=== PATIENT | male | born 1965 | race Caucasian/White ===

== ENCOUNTER 2020-07-14 23:12 | Emergency (ER) | payer OTHER ==
[2020-07-15 00:46] LABS: BASOPHIL 0.9 % (0-2); EOSINOPHIL 0.8 % (0-5); HCT 41.9 % (42.0-52.0); LYMPHOCYTE 30.3 % (15-48); MCHC 35.8 g/dL (32.0-36.0); MONOCYTE 6.5 % (0-12); MPV 9.5 fL (6.0-9.5); NEUTROPHIL 61.2 % (41-80); NRBC 0; PLT 279 K/uL (150-400); RBC 4.41 M/uL (4.70-6.00); RDW 13.3 % (11.5-14.0); WBC 7.4 K/uL (4.0-10.5)
[2020-07-15 00:48] LABS: BILIRUBIN NEGATIVE (NEGATIVE); BLOOD 3+ Ery/uL (NEGATIVE); CLARITY CLEAR (CLEAR); COLOR YELLOW (YELLOW); GLUCOSE (U) NORMAL (NORMAL); LEUKOCYTES NEGATIVE Leu/uL (NEGATIVE); NITRITE NEGATIVE (NEGATIVE); PROTEIN 2+ mg/dL (NEGATIVE); SPECIFIC GRAVITY 1.025 (1.001-1.030); pH 6.5 (5.0-9.0)
[2020-07-15 00:50] LABS: AMPHETAMINES NEGATIVE (NEGATIVE); BARBITURATES NEGATIVE (NEGATIVE); ECSTASY (MDMA) NEGATIVE (NEGATIVE); MARIJUANA (THC) NEGATIVE (NEGATIVE); METHADONE NEGATIVE (NEGATIVE); OPIATES NEGATIVE (NEGATIVE); OXYCODONE NEGATIVE (NEGATIVE)
[2020-07-15 00:53] LABS: BACTERIA TRACE
[2020-07-15 01:02] LABS: ALBUMIN 3.1 g/dL (3.4-5.0); ALKALINE PHOSHATASE 101 U/L (46-116); ALT 19 U/L (16-63); AST 20 U/L (15-37); BILIRUBIN - TOTAL 0.3 mg/dL (0.2-1.0); BUN 20 mg/dL (7-18); BUN/CREAT RATIO (CALC) 24.7 RATIO; CHLORIDE 103 mmol/L (98-107); CO2 (BICARBONATE) 29 mmol/L (21-32); CPK 99 U/L (39-308); CREATININE 0.81 mg/dL (0.67-1.17); GLUCOSE 102 mg/dL (74-106); POTASSIUM 4.1 mmol/L (3.5-5.1); TOTAL PROTEIN 7.1 g/dL (6.4-8.2)
[2020-07-15] MEDS ORDERED: IMODIUM2 MG PO (01:31)
[2020-07-15] MEDS ORDERED: LIBRIUM25 MG PO (01:31)
== END 2020-07-15 02:08 | disposition home or self-care (01) ==
LOC: FER 23:12
PROVIDERS: Emergency Medicine
DX: F10.239 Alcohol dependence with withdrawal, unspecified (principal); Z91.041 Radiographic dye allergy status
CPT/HCPCS: 36415; 80053; 80305; 81001; 82550; 83735; 85025; G0480; J2060; J3411; J3475; J7030

== ENCOUNTER 2020-07-22 17:10 | Emergency (ER) | payer OTHER ==
[~2020-07-22 17:10] MED LIST: IMODIUM2 MG PO; LIBRIUM25 MG PO
== END 2020-07-22 17:50 | disposition home or self-care (01) ==
LOC: FER 17:10
DX: F41.9 Anxiety disorder, unspecified (principal); I10 Essential (primary) hypertension; Z86.19 Personal history of other infectious and parasitic diseases
CPT/HCPCS: 99283